=== PATIENT | female | born 1975 | race Hispanic/Latino ===

== ENCOUNTER 2024-04-04 08:47 | Outpatient (CLI) | payer SELFPAY ==
[2024-04-04] MEDS ORDERED: Iopamidol 300 61% 100 ML VIAL FS ONE (11:31)
== END 2024-04-04 08:48 | disposition home or self-care (01) ==
LOC: CSHCT 08:47
PROVIDERS: ATTEND Physician Assistant Medical
DX: K62.89 Other specified diseases of anus and rectum (principal); R10.2 Pelvic and perineal pain; R10.13 Epigastric pain; R68.2 Dry mouth, unspecified
CPT/HCPCS: 74177; Q9967